=== PATIENT | male | born 1995 | race Caucasian/White ===

== ENCOUNTER → 2016-12-27 | Outpatient (REF) ==
[~2016-12-27] MED LIST: PERCOCET 325 MG1 TA2 PO; RITALIN 5MG5 MG/TAB PO; VYVANSE20 MG PO; VYVANSE50 MG PO; ZOFRAN ODT8 MG PO
== END ==
LOC: WSOH 14:02
DX: Z00.00 Encounter for general adult medical examination without abnormal findings (principal)